=== PATIENT | female | born 1960 | race Caucasian/White ===

== ENCOUNTER 2017-07-19 02:30 | Emergency (ER) | payer OTHER ==
[~2017-07-19] VITALS: Ht 157.5 cm; Wt 49.9 kg
[~2017-07-19 02:30] MED LIST: FOSAMAX 70 MG T70 MG PO; HYDROXYCHLOROQ200 M1 PO
[2017-07-19] MEDS ORDERED: CLONAZEPAM 0.50.5 M1 (02:44)
[2017-07-19] MEDS ORDERED: FOSAMAX 70 MG T70 MG (02:44)
[2017-07-19 03:25] LABS: HEMATOCRIT 37.2 % (37.0-47.0); HEMOGLOBIN 13.1 gm/dL (12.0-15.0); MCH 31.4 pg (26.0-34.0); MCHC 35.1 g/dL (28.0-37.0); MCV 89.4 fL (80.0-100.0); MPV 7.5 fl. (7.2-11.1); NUCLEATED RBCS 0 /100WBC; PLATELET COUNT* 183 thou/uL (150-400); RBC 4.16 mil/uL (4.20-5.00); RDW-CV 12.4 % (10.5-14.5); WBC 18.2 thou/uL (4.0-11.0)
[2017-07-19 03:31] LABS: URINE BILIRUBIN NEGATIVE (Negative); URINE BLOOD NEGATIVE (Negative); URINE CLARITY CLEAR; URINE COLOR YELLOW; URINE GLUCOSE-RANDOM NEGATIVE (Negative); URINE KETONES NEGATIVE (Negative); URINE LEUKOCYTES-REFLEX NEGATIVE (Negative); URINE NITRITE-REFLEX NEGATIVE (Negative); URINE PROTEIN NEGATIVE (Negative); URINE SPECIFIC GRAVITY 1.015 (1.005-1.030); URINE UROBILINOGEN 0.2 E.U./dl (0.2-1.0)
[2017-07-19 03:35] LABS: CALCIUM 9.3 mg/dL (8.5-10.1); POTASSIUM 3.2 mmol/L (3.5-5.1)
[2017-07-19 03:39] LABS: ALBUMIN 4.1 g/dL (3.4-5.0); TOTAL BILIRUBIN 0.8 mg/dL (<0.1-1.0); TOTAL PROTEIN 7.6 g/dL (6.4-8.2)
[2017-07-19 04:01] LABS: INFLUENZA A ANTIGEN None Detected (None Detect); INFLUENZA B ANTIGEN None Detected (None Detect)
[2017-07-19 04:28] LABS: ABSOLUTE LYMPHOCYTES 1.1 thou/uL (0.8-5.3); ABSOLUTE NEUTROPHILS 17.1 thou/uL (1.6-8.1); PLATELET ESTIMATE ADEQUATE
[2017-07-19] MEDS ORDERED: LEVAQUIN 500 M500 MG PO (04:57)
[2017-07-19 06:32] VITALS: BP 108/66
== END 2017-07-19 06:35 | disposition home or self-care (01) ==
LOC: M.ERS 02:30
PROVIDERS: Emergency Medicine
DX: R50.9 Fever, unspecified (principal); M32.9 Systemic lupus erythematosus, unspecified; G43.909 Migraine, unspecified, not intractable, without status migrainosus; Z98.890 Other specified postprocedural states; Z88.0 Allergy status to penicillin